=== PATIENT | male | born 1955 | race Caucasian/White ===

== ENCOUNTER → 2023-12-12 | Outpatient (CLI) | payer SELFPAY, OTHER ==
--- NOTE | 2023-12-12 09:16 | NM_ITS ---
CLINICAL: 68-year-old male with sclerotic radiographic abnormalities. WHOLE BODY 99m Tc MDP RADIONUCLIDE BONE SCINTIGRAPHY COMPARISON: None available FINDINGS: Following the intravenous administration of 26.0 mCi of 99m Tc MDP, whole body bone images reveal: 1. Increased radiopharmaceutical concentration is defined in the right acromion and proximal humeral metaphysis, diaphysis. 2. Facilitated uptake is noted in the left hip involving the superior anterior acetabulum, the patellofemoral compartments of both knees, the medial tibial compartment of the right knee, the left midfoot, the elbows bilaterally, the sternoclavicular compartments of both shoulders, the acromioclavicular compartment of the left shoulder, mid cervical spine posteriorly on the right, the posterior compartments of both ankles. 3. The remaining skeletal structures are scintigraphically unremarkable with normal-appearing renal images and urinary bladder activity identified. There is apparent contamination artifact involving the left hemipelvis. NM/Bone Scan Whole Body IMPRESSION: 1. The increase in tracer uptake noted in the right acromion and right proximal humerus are of uncertain etiology. Plain film radiography correlation is recommended. 2. 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 Electronically Signed: Pramod Hebert DO at 9:16 EDT ,
== END | disposition home or self-care (01) ==
DX: M89.9 Disorder of bone, unspecified (principal)
CPT/HCPCS: 78306; A9503